=== PATIENT | female | born 2000 | race African-American/Black ===

== ENCOUNTER 2021-04-11 15:25 | Outpatient (CLI) | payer OTHER ==
[~2021-04-11] VITALS: Ht 170.2 cm; Wt 94.9 kg
[2021-04-11 15:41] VITALS: BP 129/69
[2021-04-11] MEDS ORDERED: ACET-907 PO (15:46)
[2021-04-11 16:36] LABS: HEMATOCRIT 33.4 % (36.0-47.0); HEMOGLOBIN 10.6 g/dl (12.0-15.5); MEAN CORPUSCULAR HGB CONC 31.7 g/dl (32.0-36.5); MEAN CORPUSCULAR VOLUME 91.3 fl (80.0-96.0); PLATELET COUNT, AUTOMATED 337 10^3/uL (150-450); RED BLOOD COUNT 3.66 10^6/uL (4.00-5.40)
[2021-04-11 16:48] LABS: APPEARANCE, URINE CLEAR (CLEAR); BACTERIA, URINE AUTO NEGATIVE (NEGATIVE); BILIRUBIN, URINE AUTO NEGATIVE (NEGATIVE); BLOOD, URINE BLOOD NEGATIVE (NEGATIVE); COLOR, URINE COLORLESS (YELLOW); GLUCOSE, URINE (UA) AUTO NEGATIVE (NEGATIVE); KETONE, URINE AUTO NEGATIVE (NEGATIVE); LEUKOCYTE ESTERASE, URINE AUTO NEGATIVE (NEGATIVE); NITRITE, URINE AUTO NEGATIVE (NEGATIVE); PROTEIN, URINE AUTO NEGATIVE (NEGATIVE); RBC, URINE AUTO 0 /HPF (0-3); SPECIFIC GRAVITY URINE AUTO 1.001 (1.002-1.035); SQUAMOUS EPITHELIAL CELL UR AU 0 /HPF (0-6); UROBILINOGEN, URINE AUTO 0.2 mg/dL (0.0-2.0); WBC, URINE AUTO 0 /HPF (0-3)
[2021-04-11] MEDS ORDERED: LR 1,000 ML IV ONE (16:50)
[2021-04-11 17:22] VITALS: BP 126/76
--- NOTE | 2021-04-11 17:28 | REP ---
INDICATION: bleeding at 37 weeks abruptio, art,cervical length. COMPARISON: None. TECHNIQUE: Limited up transabdominal obstetric sonography. FINDINGS: Scanning through the gravid uterus demonstrates a single living intrauterine gestation in a cephalic lie. heart rate is recorded at 142 beats per minute. A posterior grade 3 placenta is seen without evidence of previa. Closed cervical length measured transabdominally is 2.7 cm. Amniotic fluid is subjectively normal. ART is normal at 13.0 cm. There is no evidence of placental abruption sonographically. IMPRESSION: Limited obstetric sonography as above. <Electronically signed by Med Borja > 04/11/21 [id number]
[2021-04-11 17:52] VITALS: BP 121/63
--- NOTE | 2021-04-11 18:22 | IPNPDOC ---
Text Note Date of Service The patient was seen on 04/11/21. NOTE Item Value Date Time Urine Color COLORLESS 04/11/21 1637 Urine Appearance CLEAR 04/11/21 1637 Urine pH 7.0 UNITS 04/11/21 1637 Urine Specific [place] 1.001 L 04/11/21 1637 Urine Protein NEGATIVE mg/dL 04/11/21 1637 Urine Glucose (Auto)(UA) NEGATIVE mg/dL 04/11/21 1637 Urine Ketones (Auto) NEGATIVE mg/dL 04/11/21 1637 Urine Blood NEGATIVE 04/11/21 1637 Urine Nitrite NEGATIVE 04/11/21 1637 Urine Bilirubin NEGATIVE 04/11/21 1637 Urine Urobilinogen 0.2 mg/dL 04/11/21 1637 Urine Leukocyte Esterase (Auto) NEGATIVE 04/11/21 1637 Urine Bacteria (Auto) NEGATIVE 04/11/21 1637 Urine Hyaline Casts (Auto) 0 /LPF 04/11/21 1637 Urine RBC (Auto) 0 /HPF 04/11/21 1637 Urine WBC (Auto) 0 /HPF 04/11/21 1637 Item Value Date Time White Blood Count 9.0 10^3/uL 04/11/21 1626 Red Blood Count 3.66 10^6/uL L 04/11/21 1626 Hemoglobin 10.6 g/dl L 04/11/21 1626 Hematocrit 33.4 % L 04/11/21 1626 Mean Corpuscular Volume 91.3 fl 04/11/21 1626 Mean Corpuscular Hemoglobin 29.0 pg 04/11/21 1626 Mean Corpuscular Hemoglobin Concent 31.7 g/dl L 04/11/21 1626 Red Cell Distribution Width 13.5 % 04/11/21 1626 Platelet Count 337 10^3/uL 04/11/21 1626 Nucleated Red Blood Cells % (auto) 0.2 % H 04/11/21 1626 04/11/21 PATIENT AT 37 WEEKS LMP07/23/20 EDC 04/29/2021 AT 37 WEEKS . SEEN IN TRIAGE VAGINAL HEMORRHAGE BY PATIENT STARTED 1300 HOURS NO PAIN BABY MOVING WELL. NO RISK FACTORS. EXAMINATION NO DISTRESS NO BLEEDING ON LABIA OR LEGS NOT WEARING PAD. SF HEIGHT 37 CM NON TENDER UTERUS UTERUS SOFT, VERTEX PELVIC EXAMINATION,NO BLOOD VISUALIZED ANYWERE STERILE EXAMINATION, VERTEX NOT IN PELVIS CONFIRMED VERTEX, CERVIX SOFT POSTERIOR CLOSED NO BLOOD ON FINGER. PLAN ; IV FLUIDS TO REHYDRATE CBC SAMANTHAKE- ZEE NST US ASSESSMENT reviewed us no evidence abruptio, cervix long closed B-K NEGATIVE, URINE NEGATIVE FOR BLOOD DISCHARGED UNDELIVERED REVIEWED PRECAUTIONS APPOINTMENT WITH [facility] NEXT WEEK, RTC IF ISSUESResult Comment: No cells seen. /Adult Volume of Vials of Rhogam RBC Ratio FMH Indicated 0.0000-0.0045 up to 15 mL 1 0.0046-0.0090 15-30 mL 2 0.0091-0.0135 30-45 mL 3 0.0136-0.0180 45-60 mL 4 0.0181-0.0225 60-75 mL 5 For each ratio interval of 0.0045, one additional vial of Rhogam is indicated. NAME: SMITH GIL DATE OF : 2000 AGE: 21 SEX: F REPORT #: [id number] ROOM: [facility] TECHNOLOGIST: ANUJ DOCTOR: Bereket Barkley MD Ordered for Date&Time: 04/11/21 1630 cc: [~ rep ct ivnm] Service Date&Time: 04/11/21 1714 EXAMINATION REQUESTED: Obs. Limited, ART US REASON FOR PATIENT VISIT: BLEEDING REASON FOR EXAM/COMMENT: bleeding at 37 weeks abruptio, art,cervical length INDICATION: bleeding at 37 weeks abruptio, art,cervical length. COMPARISON: None. TECHNIQUE: Limited up transabdominal obstetric sonography. FINDINGS: Scanning through the gravid uterus demonstrates a single living intrauterine gestation in a cephalic lie. heart rate is recorded at 142 beats per minute. A posterior grade 3 placenta is seen without evidence of previa. Closed cervical length measured transabdominally is 2.7 cm. Amniotic fluid is subjectively normal. ART is normal at 13.0 cm. There is no evidence of placental abruption sonographically. IMPRESSION: Limited obstetric sonography as above. <Electronically signed by Med Borja > 04/11/21 [id number] DD: Jose Borja MD 04/11/211721 DT: ABHI 04/11/211723 DS: BERTIN 04/11/21172104/11/211721 [~ rep ct labl] VS,Danielbonnick, I+O VS, Milton, I+O Vital Signs Date Time Temp Pulse Resp B/P (MAP) Pulse Ox O2 Delivery O2 Flow Rate FiO2 04/11/21 15:41 98.4 87 20 129/69 (89) 98 Room Air Bereket Barkley MD April 11, 2021 16:42
== END 2021-04-11 18:05 | disposition home or self-care (01) ==
LOC: M LDO 15:25
PROVIDERS: ATTEND Obstetrics & Gynecology
DX: O46.93 Antepartum hemorrhage, unspecified, third trimester (principal); Z3A.37 37 weeks gestation of pregnancy
CPT/HCPCS: 59025; 76815; 81001; 85027; 85460; 96360; 96361; G0378; G0463

== ENCOUNTER 2021-04-23 01:02 | Outpatient (CLI) | payer OTHER ==
[~2021-04-23] VITALS: Ht 172.7 cm; Wt 97.3 kg
[~2021-04-23 01:02] MED LIST: ACET-907 PO
== END 2021-04-23 02:00 | disposition home or self-care (01) ==
LOC: M LDO 01:02
PROVIDERS: ATTEND Obstetrics & Gynecology Reproductive Endocrinology
DX: O47.1 False labor at or after 37 completed weeks of gestation (principal); Z3A.39 39 weeks gestation of pregnancy

== ENCOUNTER 2021-04-23 07:37 | Inpatient (IN) | payer OTHER ==
[~2021-04-23] VITALS: Ht 172.7 cm; Wt 96.3 kg
[2021-04-23] VITALS (37 sets, daily range): BP systolic 107–140; BP diastolic 51–88
--- NOTE | 2021-04-23 08:44 | HPEPDOC ---
Obstetrical History & Physical General Date of Admission April 23, 2021 at 08:22 History of Present Illness Mrs. Alexia Galvez is a 21yo G1 at 39w1d ega, by LMP c/w 1st trimester ultrasound , who presents to rule out labor. The patient reports the onset of uterine contractions yesterday evening at 22:00. The contractions have increased in intensity & frequency such that she is shakira q3-5 minutes. She also reports the loss of her mucus plug. + FM. Denies LOF or VB. 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 History: No pertinent history Past Medical History Surgical History: Denies/None Family History Significant Family History: No pertinent family hx Social History Marital Status: Family situation: Spouse/partner home Psychosocial History: No pertinent psych hx * Smoker: non-smoker Alcohol: Denies Abuse Violence Screening Have you been hit/kicked/slapp: No Have you been sexually assault: No Imunizations Tdap status: current Influenza Status: current Allergies Coded Allergies: No Known Allergies (Unverified , 04/11/21) Medications Scheduled PRN Acetaminophen (Tylenol) 325 Mg Tablet, 650 MG PO Q4HP PRN for DISCOMFORT Physical Examination Physical Examination GENERAL: Alert and oriented times three. ABDOMEN: Gravid and non-tender to touch. FETUS: Is vertex (VTX) by sterile vaginal examination (SVE) HEART RATE: Regular rate and rhythm. LUNGS: Clear to auscultation (CTA). EXTREMITIES: No edema. Vital Signs/I&O Vital Signs Date Time Temp Pulse Resp B/P (MAP) Pulse Ox O2 Delivery O2 Flow Rate FiO2 04/23/21 07:52 98.0 80 107/72 (84) 04/23/21 01:15 18 Laboratory Data 24H LABS Laboratory Tests 2 04/23/21 07:57: Serology Scanned Report Hepatitis B Testing Pertinent Laboratoy Data Blood Type: O+ RBC Antibody Screen: Negative HIV: Negative Hepatitis B: Negative Hepatitis C: Negative Rapid Plasma Reagin: Nonreactive Rubella: Immune Varicella: Immune Chlamydia/Gonorrhea: Negative Group B Streptococcus: Negative Quad Screen Test: Negative Cystic Fibrosis: Negative Anatomy Ultrasound Ultrasound Date: Dec 13, 2020 Placenta Location: Posterior Normal Anatomy: Yes Placenta Previa: No Other Ultrasounds 11 Apr 2021: Formal ultrasound performed for bleeding at 37-weeks ega. FINDINGS: Scanning through the gravid uterus demonstrates a single intrauterine gestation in a cephalic lie. heart rate is recorded at 142 beats per minute. A posterior grade 3 placenta is seen without evidence of previa. Closed cervical length measured transabdominally is 2.7cm. Amniotic fluid is subjectively normal. ART is normal at 13.0cm. There is no evidence of placental abruption sonographically. Vaginal Examination Dilation: 3 cm Effacement: 70% Station: -3 Cervical Consistency: Medium Cervical Position: Middle Presentation: Cephalic presentation Assessment Heart Rate (FHR): 130 Variability: Moderate Accelerations: Positive Decelerations: None Tocometer Contractions: Yes Frequency: irregular, every 3-7 min. Assessment/Plan Assessment Mrs. Galvez is a 21-year-old (G)1 para (P)0 at 39+1 weeks, by LMP and c/w 1st trimester ultrasound, who presents to Labor and Delivery (L&D) in Early Active Labor. Plan Admit and orient. 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 Diet: Patient may eat breakfast. Following she will be on a clear liquid diet. Group B Streptococcus (GBS) negative. Labs and intravenous (IV) per unit protocol. Counseled on Pitocin and augmentation of labor. Lactated Ringers (LR): at 125mL/hr. Repeat SVE in 3-hours If no cervical change, the patient is amenable to augmentation of labor with oxytocin Anticipate normal spontaneous delivery (). C-S as appropriate. RACHEL PEDRAZA M.D. April 23, 2021 08:44
[2021-04-23] MEDS ORDERED: TRANEXAMIC ACID INJection 1,000 MG in NS 100 ML IV PRN (08:45)
[2021-04-23] MEDS ORDERED: CARBOPROST TROMETHAMINE 250 MCG/ML AMP IM PRN (08:45)
[2021-04-23] MEDS ORDERED: OXYTOCIN DRIP 30 UNITS in IV 1 EA IV PRN (08:45)
[2021-04-23 09:08] LABS: HEMATOCRIT 34.2 % (36.0-47.0); HEMOGLOBIN 10.7 g/dl (12.0-15.5); MEAN CORPUSCULAR HEMOGLOBIN 28.5 pg (27.0-33.0); MEAN CORPUSCULAR HGB CONC 31.3 g/dl (32.0-36.5); PLATELET COUNT, AUTOMATED 310 10^3/uL (150-450); RED BLOOD COUNT 3.76 10^6/uL (4.00-5.40); WHITE BLOOD COUNT 8.9 10^3/uL (4.0-10.0)
[2021-04-23] MEDS: LR 1,000 ML IV SCH ×2 (10:17→16:55)
[2021-04-23] MEDS ORDERED: OXYTOCIN DRIP 30 UNITS in IV 1 EA IV SCH (11:10)
--- NOTE | 2021-04-23 11:29 | IPNPDOC ---
Obstetrical Progress Note Date of Service April 23, 2021 Subjective Mrs. Galvez is a 21yo G1 at 39w1d ega, by LMP & 1st trimester u/s, who was admitted in early active labor at 3cm. Objective Vital Signs Date Time Temp Pulse Resp B/P (MAP) Pulse Ox O2 Delivery O2 Flow Rate FiO2 04/23/21 07:52 98.0 80 107/72 (84) 04/23/21 01:15 18 Assessment Heart Rate (FHR): 130 Variability: Moderate Accelerations: Positive Decelerations: None Heart Rate Tracing: Category I Tocometer Contractions: Yes Frequency: irregular Sterile Vaginal Examination Dilation: 3 cm Effacement (%): 70% Station: -2 Cervical Consistency: Medium Cervical Position: Middle Postion/Presentation: Cephalic presentation Assessment and Plan Age: 21 : 1 EGA at Admission: 39 Weeks & Days 39w1d Status: Reassuring Group B Streptococcus: Negative Anticipate: Vaginal Delivery (Will start Pitocin and titrate to effect) Additional Comments Start Pitocin & titrate to effect. Will repeat SVE in 4-hours, or as clinically indicated RACHEL PEDRAZA M.D. April 23, 2021 11:29
[2021-04-23] MEDS ORDERED: BUTORPHANOL 2 MG/ML INJ (J0595) IV ONE (13:30)
[2021-04-23] MEDS ORDERED: PROMETHAZINE INJ 25 MG/ML VIAL (J2550) IV ONE (13:30)
--- NOTE | 2021-04-23 15:05 | IPNPDOC ---
Text Note Date of Service The patient was seen on 04/23/21. NOTE Strip Review: HPI: Mrs. Galvez is a 21yo G1 at 39w1d ega, by LMP & 1st trimester u/s, who was admitted in early active labor at 3cm. At last SVE (11:30) the patient was unchanged at 3/75/-2. Given the lack of exchange engineer 4 hours, the decision was made to proceed with augmentation of labor with Pitocin. Shortly after starting Pitocin, the patient requested intravenous pain medication. 2mg Stadol & 25mg Phenergan were provided with adequate relief. Pitocin: 4mIU FHT: 120bpm with moderate variability, no accelerations, no decelerations TOCO: Regular q2-3min Plan: - Repeat SVE by L&D RN at 16:30 - Titrate Pitocin to effect - Will continue to monitor the FHT Kirby Rocha., Ph.D. YAMIL & OB-DRAW FIRE OPERATOR Staff VS,M[place], I+Adithya VSMilton I+Adithya Laboratory Tests 04/23/21 08:51 Vital Signs Date Time Temp Pulse Resp B/P (MAP) Pulse Ox O2 Delivery O2 Flow Rate FiO2 04/23/21 13:37 98.0 80 18 107/72 RACHEL PEDRAZA M.D. April 23, 2021 15:05
--- NOTE | 2021-04-23 17:05 | IPNPDOC ---
Obstetrical Progress Note Date of Service April 23, 2021 Subjective 21yo G1 at 39w1d ega, by LMP c/w 1st trimester ultrasound, who was admitted in early active labor. Objective Vital Signs Date Time Temp Pulse Resp B/P (MAP) Pulse Ox O2 Delivery O2 Flow Rate FiO2 04/23/21 15:54 98.7 81 111/62 (78) 04/23/21 13:37 18 Assessment Heart Rate (FHR): 120 Variability: Minimal to moderate Accelerations: None Decelerations: None Heart Rate Tracing: Category II Tocometer Contractions: Yes Frequency: regular, every 1-3 min. Sterile Vaginal Examination Dilation: 5 cm Effacement (%): 90% Station: 0 Cervical Consistency: Soft Cervical Position: Middle Postion/Presentation: Cephalic presentation Assessment and Plan Age: 21 : 1 Weeks & Days 39w1d ega Status: Reassuring Group B Streptococcus: Negative Anticipate: Vaginal Delivery Additional Comments FHT with minimal to moderate variability following Stadol & Phenergan. Will continue to monitor & assess the FHT Will repeat SVE in 4-hours, or as clinically indicated Continue Pitocin 4mIU & titrate per unit protocol Anticipate RACHEL PEDRAZA M.D. April 23, 2021 17:05
[2021-04-23] MEDS ORDERED: FENTANYL 2MCG/ML ROPIVACAINE 0.2% IN 0.9% NACL 100ML IVBAG As Ordered ONE (17:59)
[2021-04-23] MEDS ORDERED: ONDANSETRON 4MG/2ML VIAL IV PRN (18:25)
[2021-04-23] MEDS ORDERED: ePHEDrine SULFATE 25 MG/5 ML(5MG/ML) SYRINGE IV PRN (18:25)
[2021-04-23] MEDS ORDERED: FENTANYL/ROPIVACAINE/NACL BAG 100 ML EPIDURAL SCH (18:25)
[2021-04-23] MEDS ORDERED: REFRIGERATOR IV KEYS XX PRN (18:25)
[2021-04-23] MEDS ORDERED: EPIDURAL COMMENT XX SCH (18:25)
[2021-04-23] MEDS ORDERED: EPIDURAL/PCA KEYS XX PRN (18:25)
[2021-04-23] MEDS ORDERED: NALOXONE INJ 0.4MG/1ML VIAL (J2310 PER 1MG) IV PRN (18:25)
[2021-04-23] MEDS ORDERED: diphenhydrAMINE 50MG/ML VIAL (J1200) IV PRN (18:25)
[2021-04-23] MEDS ORDERED: LACTATED RINGER'S 1000 ML IV PRN (18:25)
[2021-04-23 19:58] LABS: CORD GAS ABE A 0.2; CORD GAS O2 SAT A 71.5 %; CORD GAS PCO2 A 41.2 mmHg; CORD GAS PH A 7.401 UNITS; CORD GAS PO2 A 27.9 mmHg; CORD GAS SBC A 23.9 MEQ/L; CORD GAS TCO2 A 26.3 MEQ/L
[2021-04-23 19:59] LABS: CORD GAS ABE V 0.8; CORD GAS HCO3 V 26.6 MEQ/L; CORD GAS O2 SAT V 68.6 %; CORD GAS PCO2 V 46.2 mmHg; CORD GAS PH V 7.378 UNITS; CORD GAS PO2 V 26.7 mmHg; CORD GAS SBC V 24.4 MEQ/L
[2021-04-23] MEDS ORDERED: ACETAMINOPHEN 500 MG TAB PO PRN (20:10)
[2021-04-23] MEDS ORDERED: DIBUCAINE 1% OINTMENT 30GM TOP PRN (20:10)
[2021-04-23] MEDS ORDERED: ACETAMINOPHEN TAB 650MG DOSE (2X325MG) PO PRN (20:10)
[2021-04-23] MEDS ORDERED: IBUPROFEN 600MG TAB PO PRN (20:10)
[2021-04-23] MEDS ORDERED: DOCUSATE SODIUM 100MG CAPSULE PO PRN (20:10)
--- NOTE | 2021-04-23 20:15 | DNPDOC ---
[facility] Delivery Note Delivery Note DATE OF DELIVERY: 23 Apr 2021 PREDELIVERY DIAGNOSIS: 39-1/7 weeks' gestation and labor. POST DELIVERY DIAGNOSIS: Delivered. PROCEDURE: Spontaneous vaginal delivery. CDL TEAM TRUCK DRIVER: Dr. Sarbjit Pedraza ANESTHESIA: Epidural anesthesia ESTIMATED BLOOD LOSS: 400mL. FINDINGS: 3260-gram male , Score 9/9. DELIVERY SUMMARY: Patient is a 21-year-old 1 now para 1-0-0-1 who was admitted to labor and delivery in early active labor who delivered via a spontaneous vaginal delivery on 23 Apr 2021. of a live male, 3260-grams and APGARS 9/9. Delivered MICHAEL, no nuchal cord, clear fluid. Nose and mouth bulb suctioned at perineum; body delivered without difficulty. to maternal chest. Cord clamped and cut. Cord gases collected. Placenta delivered spontaneously, intact. Fundus firm at the umbilicus. Minimal bleeding. Placenta appears intact with 3-vessel cord. Perineum and vagina inspected - small 2nd degree perineal laceration repaired with 2-O vicryl suture in the usual fashion. Additionally, there was a small, left labial laceration. A figure of eight suture was placed to obtain hemostasis at the left labia. EBL 400mL. Hemostasis. Patient tolerated the procedure well, recovering in LDR. SARBJIT PEDRAZA M.D. April 23, 2021 20:15
[2021-04-24] MEDS: IBUPROFEN 800 MG TAB PO PRN ×2 (05:13→14:17)
[2021-04-24 05:26] VITALS: BP 120/59
--- NOTE | 2021-04-24 07:10 | IPNPDOC ---
Progress Note Date of Service: April 24, 2021 Day#: 1 Progress Note SUBJECT: Mrs. Alexia Galvez is a 21-year-old G1 now P1-0-0-1 who is status post an uncomplicated spontaneous vaginal delivery at 39-1/7 weeks' gestation on 23 Apr 2021. The delivery was productive of a female weighing 3260-grams. The patient had a 2nd degree perineal & right labial laceration. This morning, Mrs. Galvez reports that she is doing well and that her pain is well controlled. She has also been ambulating, voiding spontaneously, passing flatus/stooling without issue, and is tolerating regular diet. She reports that her lochia is similar to a normal period. She plans to breast & bottle feed. Undecided on contraception. OBJECTIVE: VITAL SIGNS: Within normal limits, afebrile. Alert and oriented times three. Breath sounds clear to auscultation. Heart rate: Regular rate and rhythm, no murmurs, rubs or gallops. Abdomen: Fundus firm at U-2. Soft, NTTP. Minimal lochia. ASSESSMENT: Mrs. Galvez is a 21-year-old G1 now P1-0-0-1 who is PPD#1 status post an uncomplicated spontaneous vaginal delivery after presenting in early active labor. Vitals are within normal limits, afebrile, hemodynamically stable with no evidence of infection. PLAN: 1. Discharge to home most likely on PPD#2. 2. Tylenol and Motrin for pain. 3. Encourage breast feeding and ambulation. 4. Will decide on contraception by discharge. 5. Routine PP visit in 6 weeks in clinic. 6. Discussed return precautions at length. Kirby Rocha., Ph.D. YAMIL & OB-MEDICAL TECHNOLOGIST GENERALIST Staff VS, I&O, 24H, [facility] Vital Signs/I&O Vital Signs Date Time Temp Pulse Resp B/P (MAP) Pulse Ox O2 Delivery O2 Flow Rate FiO2 04/24/21 05:26 99.8 102 20 120/59 (79) 99 Room Air I&O- Last 24 Hours up to 6 AM 04/24/21 06:00 Intake Total 2366.5 ml Output Total 1200 ml Balance 1166.5 ml Laboratory Data 24H LABS Laboratory Tests 2 04/23/21 07:57: Serology Scanned Report Hepatitis B Testing 04/23/21 08:51: Nucleated Red Blood Cells % (auto) 0.2H 04/23/21 19:42: Cord Arterial Blood pH 7.401, Cord Arterial Blood PCO2 41.2, Cord Arterial Blood PO2 27.9, Cord Arterial Blood HCO3 25.0, Cord Arterial Blood Total CO2 26.3, Cord Arterial Blood Base Excess 0.2, Cord Arterial Base Excess (Standard 23.9, Cord Arterial Bld Oxygen Saturation 71.5, Cord Venous Blood pH 7.378, Cord Venous Blood PCO2 46.2, Cord Venous Blood PO2 26.7, Cord Venous Blood HCO3 26.6, Cord Venous Blood Total CO2 28.0, Cord Venous Base Excess (Actual) 0.8, Cord Venous Base Excess (Standard) 24.4, Cord Venous Blood Oxygen Saturation 68.6 CBC/BMP Laboratory Tests 04/23/21 08:51 RACHEL PEDRAZA M.D. April 24, 2021 07:10
[2021-04-24] MEDS: PRENATAL VITAMINS CHEWABLE TABLET PO SCH (11:30)
[2021-04-24 18:01] VITALS: BP 116/65
[2021-04-25] MEDS: IBUPROFEN 800 MG TAB PO PRN (01:27)
[2021-04-25 06:00] VITALS: BP 111/58
--- NOTE | 2021-04-25 07:02 | DS.PDOC ---
Discharge Summary General Date of Admission April 23, 2021 at 08:22 Date of Discharge April 25, 2021 Discharge Summary HOSPITAL COURSE: Ms. Galvez is a 21 yo G1 now P1 who underwent an uncomplicated on 23Apr2021 after being admitted for early active labor. Her course was unremarkable. On her day of discharge she met all appropriate discharge criteria. She was ambulating, voiding, tolerating a regular diet, and had minimal lochia. DISCHARGE MEDICATIONS: Please see below. ALLERGIES: Please see below. PHYSICAL EXAMINATION ON DISCHARGE: VITAL SIGNS: Please see below. GENERAL: AAOX3, NAD ABDOMINAL EXAMINATION: Fundus firm at U-2. No fundal tenderness EXTREMITIES: No edema PSYCHIATRIC EXAMINATION: Affect appropriate LABORATORY DATA: Please see below. ACTIVITY: Pelvic rest for 6 weeks DIET: Regular DISCHARGE PLAN: Discharge home DISPOSITION: Discharge home on 25Apr2021 DISCHARGE INSTRUCTIONS: 1. Nothing in the vagina for 6 weeks ITEMS TO FOLLOWUP ON ON OUTPATIENT: 1. Call to schedule a visit for 6 weeks post delivery DISCHARGE CONDITION: Stable. TIME SPENT ON DISCHARGE: Greater than 20 minutes. Collin Pineda DO Vital Signs/I&Os Vital Signs Date Time Temp Pulse Resp B/P (MAP) Pulse Ox O2 Delivery O2 Flow Rate FiO2 04/25/21 06:00 97.0 87 14 111/58 (75) 99 Room Air Discharge Medications Scheduled PRN Acetaminophen (Tylenol) 325 Mg Tablet, 650 MG PO Q4HP PRN for DISCOMFORT, (Reported) Allergies Coded Allergies: No Known Allergies (Unverified , 04/11/21) COLLIN PINEDA DO Apr 25, 2021 07:02
[2021-04-25] MEDS ORDERED: ACET1TAB55 PO (07:04)
[2021-04-25] MEDS ORDERED: IBUP80TA PO (07:04)
[2021-04-25] MEDS: PRENATAL VITAMINS CHEWABLE TABLET PO SCH (10:00)
== END 2021-04-25 13:00 | disposition home or self-care (01) | DRG 807 ==
LOC: M LDO 07:37 → M LDI 08:22 → M OBS 23:15
PROVIDERS: ADMIT Obstetrics & Gynecology; ATTEND Obstetrics & Gynecology Reproductive Endocrinology
PROC: 10E0XZZ Delivery of Products of Conception, External Approach (ICD-10-PCS; principal; 2021-04-23)
PROC: 0KQM0ZZ Repair Perineum Muscle, Open Approach (ICD-10-PCS; 2021-04-23)
DX: O70.1 Second degree perineal laceration during delivery (principal); Z37.0 Single live birth; Z3A.39 39 weeks gestation of pregnancy

== ENCOUNTER → 2022-06-15 | Outpatient (REF) ==
[~2022-06-15] MED LIST changes: +ACET1TAB55 PO; +IBUP80TA PO
== END ==
LOC: M PLAIMG 10:06
PROVIDERS: ATTEND Internal Medicine
DX: R06.02 Shortness of breath (principal)